=== PATIENT | male | born 1970 | race Caucasian/White ===

== ENCOUNTER 2017-08-02 22:29 | Emergency (ER) | payer SELFPAY ==
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
[2017-08-02 23:00] VITALS: BP 130/84
[2017-08-02] MEDS ORDERED: PROPARACAINE HCL 0.5% OPTH OP ONE ×2 (23:01→23:29)
== END 2017-08-02 23:31 | disposition home or self-care (01) ==
LOC: ED 22:29
DX: H43.399 Other vitreous opacities, unspecified eye (principal)
CPT/HCPCS: 99283; A9270-GY